=== PATIENT | male | born 2000 | race American Indian/Alaskan Native ===

== ENCOUNTER 2018-06-01 12:57 | Emergency (ER) | payer OTHER ==
[~2018-06-01] VITALS: Ht 170.2 cm; Wt 83.9 kg
[~2018-06-01 12:57] MED LIST: AMOX50SU PO; CODACEE120 PO; Permethrin60 GM TP; Prednisone20 MG PO
[2018-06-01] MEDS ORDERED: KETO10 PO (13:21)
== END 2018-06-01 13:33 | disposition home or self-care (01) ==
LOC: ER 12:57
DX: S16.1XXA Strain of muscle, fascia and tendon at neck level, initial encounter (principal); X58.XXXA Exposure to other specified factors, initial encounter; Y93.67 Activity, basketball
CPT/HCPCS: 99283